=== PATIENT | male | born 1955 | race Caucasian/White ===

== ENCOUNTER 2017-06-26 23:35 | Inpatient (IN) | payer MEDICARE ==
[~2017-06-26] VITALS: Ht 175.3 cm; Wt 73.9 kg
[2017-06-27] LABS: HEMATOCRIT 36.2 % (39.2-51.8); HEMOGLOBIN 12.5 g/dL (13.7-18.0); WHITE BLOOD COUNT 6.3 x10^3/uL (3.4-10)
[2017-06-27] MEDS ORDERED: MORPHINE SULFATE 4 MG/ML, 1ML IVPush PRN
[2017-06-27] MEDS ORDERED: ONDANSETRON 2MG/ML, 2ML IVPush ONE
[2017-06-27 00:12] LABS: BLOOD UREA NITROGEN 15 mg/dL (7-18)
[2017-06-27] MEDS ORDERED: ASPI-496 PO (00:56)
[2017-06-27 01:36] VITALS: BP 107/70
[2017-06-27] MEDS ORDERED: SODIUM CHLORIDE 0.9% 1,000 ML IV SCH (01:55)
[2017-06-27] MEDS ORDERED: DOCUSATE 100 MG CAPSULE PO PRN (02:00)
[2017-06-27] MEDS ORDERED: hydrALAzine 20 MG/ML, 1ML IVPush PRN (02:00)
[2017-06-27] MEDS ORDERED: morphine SULFATE 10 MG/ML, 1ML IVPush PRN (02:00)
[2017-06-27] MEDS ORDERED: ONDANSETRON 2MG/ML, 2ML IVPush PRN (02:00)
[2017-06-27] MEDS ORDERED: ACETAMINOPHEN 325 MG TABLET PO PRN (02:00)
[2017-06-27] MEDS ORDERED: POLYETHYLENE GLYCOL 17 GM PACKET PO PRN (02:00)
[2017-06-27] MEDS ORDERED: BISACODYL 10 MG SUPP PR PRN (02:00)
[2017-06-27 05:51] LABS: IS PT STATUS REG ER OR PRE ER? NO
[2017-06-27] MEDS ORDERED: SODIUM CHLORIDE 0.9% 1,000 ML IV ONE (08:54)
[2017-06-27 08:55] VITALS: BP 123/73
[2017-06-27] MEDS: ASPIRIN 81 MG TABLET EC PO SCH (09:00)
[2017-06-27 13:10] VITALS: BP 113/71
[2017-06-27] MEDS ORDERED: TICAGRELOR 90 MG TABLET ONE (15:33)
[2017-06-27] MEDS ORDERED: VERAPAMIL 2.5 MG/ML, 2ML ONE (15:33)
[2017-06-27] MEDS ORDERED: FENTANYL PF 100 MCG/2ML ONE (15:33)
[2017-06-27] MEDS ORDERED: MIDAZOLAM 1 MG/ML, 5ML ONE (15:33)
[2017-06-27] MEDS ORDERED: HEPARIN 1,000 UNITS/ML, 10ML ONE (15:34)
[2017-06-27] MEDS ORDERED: LIDOCAINE 2%, 20ML ONE (15:34)
[2017-06-27] MEDS ORDERED: BIVALIRUDIN 250 MG ONE (15:34)
[2017-06-27] MEDS ORDERED: ASPIRIN 325 MG TABLET EC ONE (17:05)
[2017-06-27 19:30] VITALS: BP 131/84
[2017-06-27] MEDS: ATORVASTATIN 40 MG TABLET PO SCH (20:50)
[2017-06-27] MEDS ORDERED: TICAGRELOR 90 MG TABLET PO SCH (21:00)
[2017-06-28 00:35] VITALS: BP 117/76
[2017-06-28] MEDS: ASPIRIN 81 MG TABLET EC PO SCH ×2 (07:29→09:47)
[2017-06-28] MEDS: PRASUGREL 10 MG TABLET PO SCH (09:47)
[2017-06-28 10:30] VITALS: BP 108/76
[2017-06-28 11:50] LABS: HEMATOCRIT 37.1 % (39.2-51.8); HEMOGLOBIN 12.8 g/dL (13.7-18.0); WHITE BLOOD COUNT 5.3 x10^3/uL (3.4-10)
[2017-06-28 12:01] LABS: BLOOD UREA NITROGEN 12 mg/dL (7-18)
[2017-06-28 14:00] VITALS: BP 98/63
[2017-06-28 19:30] VITALS: BP 124/73
[2017-06-28] MEDS: ATORVASTATIN 40 MG TABLET PO SCH (19:44)
[2017-06-29 01:30] VITALS: BP 102/69
[2017-06-29] MEDS ORDERED: ATOR40TA78 PO (06:58)
[2017-06-29] MEDS ORDERED: PRAS10TA4 PO (06:58)
[2017-06-29] MEDS: ASPIRIN 81 MG TABLET EC PO SCH ×2 (07:54)
[2017-06-29] MEDS: PRASUGREL 10 MG TABLET PO SCH (07:54)
[2017-06-29 07:56] VITALS: BP 128/71
[2017-06-29 08:33] VITALS: BP 133/66
== END 2017-06-29 09:45 | disposition home or self-care (01) | DRG 247 ==
LOC: ED 06-27 00:33 → EDIP 06-27 00:38 → ED 06-27 01:05 → 5SO 06-27 02:01 → DCLOUNGE 06-29 09:31
PROVIDERS: ADMIT Hospitalist; ATTEND Hospitalist
PROC: 4A023N8 Measurement of Cardiac Sampling and Pressure, Bilateral, Percutaneous Approach (ICD-10-PCS; principal; 2017-06-27)
PROC: 027035Z Dilation of Coronary Artery, One Artery with Two Drug-eluting Intraluminal Devices, Percutaneous Approach (ICD-10-PCS; 2017-06-27)
PROC: B2181ZZ Fluoroscopy of Left Internal Mammary Bypass Graft using Low Osmolar Contrast (ICD-10-PCS; 2017-06-27)
PROC: B211YZZ Fluoroscopy of Multiple Coronary Arteries using Other Contrast (ICD-10-PCS; 2017-06-27)
PROC: B21F1ZZ Fluoroscopy of Other Bypass Graft using Low Osmolar Contrast (ICD-10-PCS; 2017-06-27)
DX: I25.110 Atherosclerotic heart disease of native coronary artery with unstable angina pectoris (principal); I24.9 Acute ischemic heart disease, unspecified; I08.1 Rheumatic disorders of both mitral and tricuspid valves; I25.2 Old myocardial infarction; Z95.1 Presence of aortocoronary bypass graft; Z66 Do not resuscitate; Z79.82 Long term (current) use of aspirin; Z87.891 Personal history of nicotine dependence; Z95.5 Presence of coronary angioplasty implant and graft
CPT/HCPCS: 36415; 80048; 82040; 84484; 85025; 93005; 93306; 93459; 99156; 99157; 99285; C1769; C1894; C9600; J0583; J1644; J2250; J3010; J3490; C1725; C1874; C1887; J7030; Q9967